=== PATIENT | male | born 1990 | race Caucasian/White ===

== ENCOUNTER 2024-11-24 09:45 | Outpatient (CLI) | payer OTHER, SELFPAY | END 2024-11-24 09:46 | disposition home or self-care (01) | LOC: NFLDREF 11-25 16:08 | PROVIDERS: PCP Family Medicine; Visit Provider Family Medicine | DX: R03.0 Elevated blood-pressure reading, without diagnosis of hypertension (principal); R41.840 Attention and concentration deficit; R06.83 Snoring; Z13.1 Encounter for screening for diabetes mellitus; Z13.6 Encounter for screening for cardiovascular disorders | CPT/HCPCS: 80053; 80061 ==

== ENCOUNTER 2024-12-28 12:06 | Outpatient (CLI) | payer OTHER, SELFPAY ==
--- NOTE | 2025-01-11 12:31 | W.PM.SLEEP ---
Sleep Study Details Details Interpreting Provider: Kaya Date of Sleep Study: 12/28/24 Sleep Study Details: STUDY TYPE:? Home unattended ? BMI:? 28 ORDERING PROVIDER:Glenroy Childs INDICATION:? Concern for sleep apnea ? SLEEP SUMMARY:? 369 minutes total sleep time monitored RESPIRATORY SUMMARY:? AHI 6 per rule 1A, 2.6 per CMS guideline Low oxygen 89 Snoring 100% PERIODIC LIMB MOVEMENTS OF SLEEP:? Not recorded CARDIAC:? Range 53-111, mean 67.2 beats per minute IMPRESSION:? Mild obstructive sleep apnea RECOMMENDATION: Treatment options include CPAP dental appliance and/or airway expansion surgery.
== END 2024-12-28 12:07 | disposition home or self-care (01) ==
PROVIDERS: PCP Family Medicine; Visit Provider Family Medicine
DX: G47.33 Obstructive sleep apnea (adult) (pediatric) (principal)
CPT/HCPCS: 95806